=== PATIENT | female | born 1950 | race Caucasian/White ===

== ENCOUNTER 2020-04-27 08:25 | Day surgery (SDC) | payer MEDICARE, OTHER ==
[2020-04-22 13:16] LABS: HEMATOCRIT 44.5 % (36.0-47.0); HEMOGLOBIN 15.4 g/dL (12.0-15.5); MEAN CORPUSCULAR HEMOGLOBIN 30.5 pg (27.0-33.4); MEAN CORPUSCULAR HGB CONC 34.6 g/dL (32.0-36.0); MEAN CORPUSCULAR VOLUME 88 fl (80-97); PLATELET COUNT 257 10^3/uL (150-450); RED BLOOD COUNT 5.05 10^6/uL (3.72-5.28); RED CELL DISTRIBUTION WIDTH 13.4 % (11.5-14.0)
[2020-04-22 13:42] LABS: ANION GAP 12 (5-19); BLOOD UREA NITROGEN 15 mg/dL (7-20); CALCIUM 9.7 mg/dL (8.4-10.2); CARBON DIOXIDE 23 mmol/L (22-30); CHLORIDE 105 mmol/L (98-107); GLUCOSE 101 mg/dL (75-110); POTASSIUM 4.6 mmol/L (3.6-5.0)
--- NOTE | 2020-04-22 18:11 | EKG REPORT ---
SEVERITY:- ABNORMAL ECG - SINUS RHYTHM PROBABLE LEFT ATRIAL ABNORMALITY LEFT ANTERIOR FASCICULAR BLOCK CONSIDER ANTERIOR INFARCT : Confirmed by: Yuri Daley MD 22-Apr-2020 18:11:19
[~2020-04-27 08:25] MED LIST: CEFAZOLIN 1 GM/D5W RTU 1 GM/50 ML RTUPB IV ONE; CEFAZOLIN 1 GM/D5W RTU 1 GM/50 ML RTUPB IV PRN; LACTATED RINGERS 1000 ML IV PRN; LIDOCAINE 1% INJ-PF (10 MG/ML) 30 ML SDV ONE; LIDOCAINE 4% CREAM 5 GM TUBE ONE; SUCCINYLCHOLINE CHLORIDE INJ 200 MG/10 ML VIAL ONE
[2020-04-27] MEDS ORDERED: EPHEDRINE SULFATE INJ 50 MG/1 ML AMPULE ONE (09:28)
[2020-04-27] MEDS ORDERED: FENTANYL CITRATE INJ/PF 250 MCG/5 ML AMPULE ONE (09:28)
[2020-04-27] MEDS ORDERED: MIDAZOLAM 2 MG/2 ML INJ ONE (09:28)
[2020-04-27] MEDS ORDERED: DEXAMETHASONE SOD PHOSPHATE INJ 4 MG/1 ML VIAL ONE (09:28)
[2020-04-27] MEDS ORDERED: ONDANSETRON HCL INJ/PF 4 MG/2 ML SDV ONE (09:28)
[2020-04-27] MEDS ORDERED: PROPOFOL INJ 200 MG/20 ML VIAL IV ONE (09:28)
[2020-04-27] MEDS ORDERED: MICROFIBRILLAR COLLAGEN 1 GM PACK ONE (11:26)
[2020-04-27] MEDS ORDERED: METHYLENE BLUE 50 MG/10 ML AMPULE ONE (11:26)
[2020-04-27] MEDS ORDERED: LIDOCAINE 1%/EPINEPHRINE INJ 20 ML VIAL ONE (11:26)
[2020-04-27] MEDS ORDERED: MEPERIDINE HCL/PF INJ 25 MG/1 ML DISP.SYRIN IV PRN (12:05)
[2020-04-27] MEDS ORDERED: OXYCODONE-ACETAMINOPHEN 5-325 MG TABLET PO PRN ×2 (12:05→12:49)
[2020-04-27] MEDS ORDERED: FENTANYL CITRATE INJ/PF 100 MCG/2 ML AMPUL IV PRN ×3 (12:05)
[2020-04-27] MEDS ORDERED: MORPHINE SULFATE 10 MG/ML INJ IV PRN (12:05)
[2020-04-27] MEDS ORDERED: PROMETHAZINE HCL INJ 25 MG/1 ML VIAL IV PRN ×2 (12:05)
[2020-04-27] MEDS ORDERED: DIPHENHYDRAMINE HCL 50 MG/ML VIAL IV PRN (12:05)
--- NOTE | 2020-04-27 12:46 | Operative Report ---
Operative Report DATE OF SURGERY: 04/27/20 PREOPERATIVE DIAGNOSIS: 1. Invasive ductal carcinoma, left breast. 2. History of previous breast biopsy POSTOPERATIVE DIAGNOSIS: Same OPERATION: 1. Open excisional lumpectomy, needle localized, left breast. 2. Use of intraoperative ultrasonography. 3. [place] lymph node biopsy left axilla x2. 4. Interpretation of the specimen radiograph SURGEON: MARCIO HANSON MANAGER UTILIZATION MANAGEMENT: BLAINE BERRIOS ANESTHESIA: GA TISSUE REMOVED OR ALTERED: [place] lymph nodes x2; left breast lumpectomy specimen COMPLICATIONS: None ESTIMATED BLOOD LOSS: Scant INTRAOPERATIVE FINDINGS: See below PROCEDURE: Patient was seen in the preop holding area where the left breast was marked. Bedside neoprobe scanning demonstrated increased activity in left axilla demonstrating successful migration of seek to the left axilla. The patient was taken to the main operating room and general anesthesia was induced via endotracheal intubation. Left arm was abducted, left breast, 2 o'clock position, areolar border, intradermally injected with 2 cc of full-strength methylene blue. Left breast was massaged. The left breast needle and wire were trimmed at the skin level with wire cutters. The left breast and left axilla were prepped and draped in sterile fashion. A surgical plan and surgical timeout were conducted. We proceeded with left axillary sentinel lymph node biopsy. An area of increased activity in the low left axilla was identified with the neoprobe is being hot. Skin was anesthetized 1% plain lidocaine, a 3 and half centimeter incision was made with a #10 blade, and the left sella explored using electrocautery, and [place] dissector. 2 sentinel lymph nodes were identified, both blue, both hot, and in the low axilla. Her sentinel lymph node had a in vivo count of approximately 6 ex vivo count of approximately 5000. Second sentinel lymph node had in vivo count of proximately 1600 and an ex vivo count of approximately of approximately 2000. Background counts were negligible. We felt that the sentinel lymph node biopsy portion of the procedure was complete. The patient was leveled out, and ultrasound was performed of the left breast. We could see the tumor with the needle localization wire running just inferior to the target tumor. We anesthetized the skin above the tumor with 1% plain lidocaine. 3 and half centimeter incision made with a #10 blade, and a lumpectomy was now performed using gentle retraction, and electrocautery dissection. A substantial lumpectomy specimen was obtained approximately 6.6 x 5 cm from the skin to the pectoralis major muscle. The specimen included the n eedle however during extraction, the wire was released from the specimen. The specimen was marked with a long silk suture in the lateral position a short suture in the superior position. It was then photographed by placing on a specimen container, and placing it in the specimen radiograph machine in the operating room. 2 images were taken one AP, one lateral and both showed retention of the tumor, biopsy clip, and needle. The specimen was personally taken by Dr. Forbes to Dr. Ny, pathologist, who examined the specimen, and based on her inspection, and the history provided, as well as specimen radiographs, felt that no additional margin resection was indicated. We returned to the patient, check for bleeding there was none. We placed Avitene in the lumpectomy cavity, closed wound with 2-0 and 3-0 Vicryl, and excellent skin glue. The left axillary wound check for bleeding there was none. It was closed with 3-0 Vicryl, except for glue. Patient tolerated procedure well, extubated, taken recovery room in stable condition. The physician assistant track coach, Ms. Ruiz, provided assistance during this case by: Assisting with retracting tissue, instillation of local anesthesia and closure of skin incisions.
--- NOTE | 2020-04-27 12:49 | Discharge Summary ---
Discharge Summary (SDC) - Discharge Final Diagnosis: Left breast cancer Date of Surgery: 04/27/20 Discharge Date: 04/27/20 Condition: Good Forms: ASU Anesthesia D/C Instruction, Discharge POC-Surgical Service Treatment or Instructions: [facility] [address], [place] [address] Care Instructions Following Your Lumpectomy Activities: Resume normal activities when you feel comfortable. It is best to remain as active as possible to speed your recovery. It is common to experience some fatigue after surgery and you may find that short naps are helpful. Avoid strenuous activity such as weight lifting, tennis, etc at your surgical site for two weeks. Perform gentle arm exercises daily and do not favor your operative arm to due increased risk of mobility issues postoperatively. No driving for 7 days after surgery. Do not drive if you are taking pain medication other than Tylenol or Ibuprofen. No swimming, tub baths or soaking in a hot tub for 4 weeks. There are no dietary restrictions. Do not smoke as this impairs wound healing. Surgical Site care: You may shower 24 hours after surgery to include washing the wound with soap and water using your hands. Do not scrub the incision. Pat the area dry with a towel. You do not need to recover the wound although some patients find that they feel more comfortable using a light dressing for a few days to absorb any minimal drainage which may occur. Do not use heating pad or apply an ice pack to the operative site. You may apply deodorant if you are careful to avoid get ting it on the wound itself. Medications: Take Toradol 10mg one pill by mouth every six hours as needed for pain. Do not take additional NSAIDs with the Toradol. You may take Tylenol as needed. Resume all of your normal prescription medications after your surgery unless instructed otherwise. You may experience constipation after surgery while taking pain medications. If using a narcotic on a regular basis, take a stool softener such as Colace twice a day. It is helpful to stay hydrated by drinking lots of fluids. Walking is also helpful and is good exercise after surgery. If you need extra help, use Milk of Magnesia according to the directions on the package. Follow-up: Call our office at to make a follow-up appointment in 10-14 days. Your doctor will call to discuss the pathology report with you as soon as it is available. Concerns: If you had a sentinel lymph node biopsy with your mastectomy, your urine may have a greenish discoloration. This is normal and will resolve as the blue dye slowly leaves your system. Some bruising may occur and will go away over time. If you have a fever of 101.5 or greater, chills, redness at the incision site, excessive drainage from your wound or severe pain not relieved by pain medication, call your doctor. A physician is available 24 hours a day 7 days a week in addition to regular office hours. If problems arise after normal office hours please call the hospital at . Please call if you have any questions or concerns. Prescriptions: Ketorolac Tromethamine [Toradol 10 mg Tablet] 10 mg PO Q6HP PRN #20 tablet PRN Reason: Referrals: MARCIO CHOUDHURY MD [ACTIVE STAFF] - Discharge Diet: As Tolerated Discharge Activity: No Lifting Over 10 Pounds, No Lifting/Push/Pulling Report the Following to Your Physician Immediately: Increase in Pain, Fever over 101 Degrees, Unusual Bleeding, Redness, Swelling, Warmth, Increased Soreness, Drainage-Foul Smelling
[2020-04-27 14:58] VITALS: BP 157/81
--- NOTE | 2020-05-02 08:31 | RADIOLOGY REPORT (SQ) ---
EXAM DESCRIPTION: NM LYMPHATICS/LYMPH GLANDS IMAGES COMPLETED DATE/TIME: 04/27/2020 10:13 am REASON FOR STUDY: MALIGNANT NEOPLASM LEFT BREAST C50.912 MALIGNANT NEOPLASM OF UNSPECIFIED SITE OF LEFT FEMAL Z79.899 OTHER LONG-TERM (CURRENT) DRUG THERAPY COMPARISON: None. RADIONUCLIDE AND DOSE: 623 microcuries TC-99m tilmanocept - [employer]. The route of agent administration: Subcutaneous in the skin. TECHNIQUE: The skin of the left breast was prepped in sterile fashion. The radiopharmaceutical was administered in equally divided doses in the periareolar breast. LIMITATIONS: None. FINDINGS: Images demonstrate activity at the injection site. IMPRESSION: ADMINISTRATION OF RADIOPHARMACEUTICAL FOR SENTINEL LYMPH NODE EVALUATION. TECHNICAL DOCUMENTATION: JOB ID: [id number] 2010 [employer]- All Rights Reserved Reading location - IP/workstation name: [email or web address]
== END 2020-04-27 14:15 | disposition home or self-care (01) ==
LOC: OROUT 08:25
PROVIDERS: ATTEND Surgery
DX: C50.112 Malignant neoplasm of central portion of left female breast (principal); Z03.818 Encounter for observation for suspected exposure to other biological agents ruled out
CPT/HCPCS: 19301; 38500; 93005; 36415; 85027; 80048; 88342 ×2; 88307 ×2; 78195; 93010; 01610; 19281; 76098; U0003; A9520; J2250; J0690; J1100; J3010; J3490 ×4; J0330; J2405; J2704; Q9968; C9803; 1610; 87635; 88341